=== PATIENT | female | born 1990 | race Two or more races ===

== ENCOUNTER 2024-02-01 13:18 | Emergency (ER) | payer OTHER ==
[~2024-02-01] VITALS: Ht 160 cm; Wt 87.1 kg
[2024-02-01 15:33] LABS: HEMATOCRIT 34.1 % (36.0-45.00); HEMOGLOBIN 11.6 g/dL (12.0-15.00); MEAN CELL VOLUME 94.6 fL (80.00-100.00); MEAN CORPUSCULAR HEMOGLOBIN 32.3 pg (27.00-32.0); MEAN CORPUSCULAR HGB CONC 34.1 g/dl (32.0-36.0); PLATELET COUNT 367 K/uL (150-450); RED BLOOD COUNT 3.61 M/uL (4.00-6.00); RED CELL DISTRIBUTION WIDTH 13.1 % (11.5-14.5)
[2024-02-01 16:12] LABS: PH,URINE 5.5 (5.0-8.0); URINE APPEARANCE Clear; URINE BILIRRUBIN Negative (NEGATIVE); URINE BLOOD Small; URINE COLOR Yellow; URINE GLUCOSE Negative (NEGATIVE); URINE KETONE Trace (NEGATIVE); URINE LEUKOCYTE Negative; URINE NITRATE Negative; URINE PROTEIN Negative (NEGATIVE); URINE UROBILINOGEN 0.2 E.U./dl
[2024-02-01 16:17] LABS: URINE BACTERIA 3186.4 uL (0.0-1933); URINE EPITHELIAL CELLS 71.1 uL (0.0-38.8); URINE RBC 17.5 uL (0.0-20.8); URINE WBC 26.4 uL (0.0-23.2)
[2024-02-01 16:57] LABS: URINE CAST 0.76 uL (0.0-1.40); URINE MUCUS MODERATE
== END 2024-02-01 19:42 | disposition home or self-care (01) ==
LOC: ER 13:20
PROVIDERS: Nurse Practitioner Family
DX: O20.8 Other hemorrhage in early pregnancy (principal); Z3A.09 9 weeks gestation of pregnancy

== ENCOUNTER 2024-07-26 17:37 | Inpatient (IN) | payer OTHER ==
[2024-07-26] VITALS (7 sets, daily range): BP systolic 100–114; BP diastolic 61–73
[~2024-07-26] VITALS: Ht 160 cm; Wt 2.3 kg
[2024-07-26] MEDS ORDERED: AMPICILLIN SODIUM 2,000 MG VIAL IV NR (18:00)
[2024-07-26] MEDS ORDERED: RINGERS SOLUTION,LACTATED 1,000 ML IV SCH (18:00)
[2024-07-26] MEDS ORDERED: BETAMETHASONE ACETATE,SOD PHOS 30 MG/5 ML ML IM NR (18:00)
[2024-07-26] MEDS ORDERED: PRENATAL + DHA1 EACH PO (18:06)
[2024-07-26] MEDS ORDERED: OBSTETRIX DHA1 EAC1 PO (18:07)
[2024-07-26] MEDS ORDERED: IRON325 MG PO (18:07)
[2024-07-26] MEDS ORDERED: OXYTOCIN 20 UNITS/500ML RL PIGGYBAG IV ONE (18:39)
[2024-07-26] MEDS ORDERED: OXYTOCIN 500 ML IV SCH (19:00)
[2024-07-26 19:26] LABS: HEMATOCRIT 32.2 % (36.0-45.00); MEAN CELL VOLUME 95.5 fL (80.00-100.00); MEAN CORPUSCULAR HEMOGLOBIN 32.6 pg (27.00-32.0); MEAN CORPUSCULAR HGB CONC 34.1 g/dl (32.0-36.0); PLATELET COUNT 329 K/uL (150-450); RED BLOOD COUNT 3.37 M/uL (4.00-6.00); RED CELL DISTRIBUTION WIDTH 13.8 % (11.5-14.5)
[2024-07-26 19:38] LABS: URINE APPEARANCE Clear; URINE BILIRRUBIN Negative (NEGATIVE); URINE BLOOD Negative; URINE COLOR Yellow; URINE GLUCOSE Negative (NEGATIVE); URINE LEUKOCYTE Trace; URINE NITRATE Negative; URINE PROTEIN Negative (NEGATIVE); URINE UROBILINOGEN 0.2 E.U./dl
[2024-07-26 19:41] LABS: URINE BACTERIA 161.5 uL (0.0-1933); URINE EPITHELIAL CELLS 13.2 uL (0.0-38.8); URINE RBC 5.3 uL (0.0-20.8)
[2024-07-26 19:49] LABS: URINE CAST 0.14 uL (0.0-1.40); URINE KETONE 40 (NEGATIVE)
[2024-07-26 19:52] LABS: INR 0.95; PARTIAL THROMBOPLASTIN TIME 25.7 SECONDS (22.0-34.0); PROTHROMBIN TIME 10.4 SECONDS (9.0-11.5)
[2024-07-26 20:02] LABS: BILIRUBIN TOTAL 0.4 mg/dL (0.3-1.2); CALCIUM 9.6 mg/dL (8.5-10.1); CREATININE SERUM 0.42 mg/dL (0.55-1.02); GFR 172.71; GLOBULINA 4.3 G/DL (2.4-3.5); POTASSIUM 4.14 mEq/L (3.5-5.1); TOTAL PROTEIN 7.3 gm/dL (6.4-8.2)
[2024-07-26] MEDS ORDERED: AMPICILLIN SODIUM 1,000 MG VIAL IV SCH (21:00)
[2024-07-26] MEDS ORDERED: LIDOCAINE HCL 1% 10ML VIAL ONE (22:15)
[2024-07-26] MEDS ORDERED: CHLORHEXIDINE GLUCONATE 120 ML BOTTLE TOP ONE (22:15)
[2024-07-26] MEDS ORDERED: OXYTOCIN 20 UNITS/1000ML RL PIGGYBAG IV ONE (22:15)
[2024-07-26] MEDS ORDERED: ERYTHROMYCIN BASE OPHT 1GM EACH TUBE OP ONE (22:15)
[2024-07-27 00:54] VITALS: BP 114/69
[2024-07-27] MEDS ORDERED: IBUprofen 600 MG TABLET PO SCH (06:00)
[2024-07-27] MEDS ORDERED: FF) RHO(D) IMMUNE GLOBULIN (POM) IM SCH (07:30)
[2024-07-27 08:00] VITALS: BP 106/66
[2024-07-27 10:11] LABS: HEMATOCRIT 31.7 % (36.0-45.00); HEMOGLOBIN 11.1 g/dL (12.0-15.00); MEAN CELL VOLUME 93.9 fL (80.00-100.00); MEAN CORPUSCULAR HEMOGLOBIN 32.7 pg (27.00-32.0); MEAN CORPUSCULAR HGB CONC 34.9 g/dl (32.0-36.0); PLATELET COUNT 301 K/uL (150-450); RED BLOOD COUNT 3.38 M/uL (4.00-6.00); RED CELL DISTRIBUTION WIDTH 13.9 % (11.5-14.5)
[2024-07-27 16:44] VITALS: BP 102/66
[2024-07-28 00:05] VITALS: BP 99/63
[2024-07-28 09:02] VITALS: BP 107/66
== END 2024-07-28 11:59 | disposition home or self-care (01) | DRG 805 ==
LOC: LDR 17:37 → OB/GYN 17:37
PROVIDERS: Obstetrics & Gynecology; ADMIT Specialist; ATTEND Specialist
PROC: 10E0XZZ Delivery of Products of Conception, External Approach (ICD-10-PCS; principal; 2024-07-26)
PROC: 0UQG7ZZ Repair Vagina, Via Natural or Artificial Opening (ICD-10-PCS; 2024-07-26)
PROC: 4A1HXCZ Monitoring of Products of Conception, Cardiac Rate, External Approach (ICD-10-PCS; 2024-07-26)
DX: O71.4 Obstetric high vaginal laceration alone (principal); O60.14X0 Preterm labor third trimester with preterm delivery third trimester, not applicable or unspecified; Z37.0 Single live birth; Z3A.34 34 weeks gestation of pregnancy